=== PATIENT | female | born 1950 | race Caucasian/White ===

== ENCOUNTER 2017-09-30 09:36 | Inpatient (IN) | payer BC, MEDICARE ==
[2017-09-30] MEDS ORDERED: Sodium Chloride 0.9% 1,000 ML IV ONE ×3 (10:20→11:15)
--- NOTE | 2017-09-30 10:22 | EDM.PDOC ---
ED HPI GENERAL MEDICAL PROBLEM - General Chief Complaint: Gastrointestinal Problem Stated Complaint: CHILLS/DIZZY/LIGHTHEADED Time Seen by Provider: 09/30/17 10:08 Source of Information: Reports: Patient History Limitations: Reports: No Limitations - History of Present Illness INITIAL COMMENTS - FREE TEXT/NARRATIVE: 67 y/o F with chief complaint of fatigue/weakness. She states she's had extreme thirst and feels like she's constantly drinking. She's also had frequent urination. She has some nausea and loss of appetite. Has occasional dry heaving but no vomiting. No abdominal pain. No dysuria/hematuria. No chest pain, cough, or shortness of breath. Had a cough six week ago but none since then. No fever. Saw her primary care provider 4 days ago who prescribed Levaquin for bronchitis. She's been taking it but feels no better. No studies were done at that visit. - Related Data Allergies Allergy/AdvReac Type Severity Reaction Status Date / Time No Known Allergies Allergy Verified 09/30/17 10:07 Home Meds: Home Meds Hydrochlorothiazide 25 mg PO DAILY 09/30/17 [History] Levofloxacin 500 mg PO DAILY 09/30/17 [History] Lisinopril 20 mg PO DAILY 09/30/17 [History] Meloxicam [Mobic] 15 mg PO DAILY 09/30/17 [History] Prednisone [IJP: Prednisone] 10 mg PO BID 09/30/17 [History] Propranolol HCl [Inderal LA] 160 mg PO DAILY 09/30/17 [History] ED ROS GENERAL - Review of Systems Review Of Systems: See Below Constitutional: Reports: Malaise, Fatigue. Denies: Fever HEENT: Reports: No Symptoms Respiratory: Denies: Shortness of Breath, Cough Cardiovascular: Denies: Chest Pain Endocrine: Reports: Fatigue, Polydypsia, Polyuria GI/Abdominal: Reports: Nausea. Denies: Abdominal Pain : Reports: Frequency Musculoskeletal: Reports: No Symptoms Skin: Reports: No Symptoms Neurological: Reports: Dizziness Psychiatric: Reports: No Symptoms Hematologic/Lymphatic: Reports: No Symptoms Immunologic: Reports: No Symptoms ED EXAM, GI/ABD - Physical Exam Exam: See Below Exam Limited By: No Limitations General Appearance: Alert, WD/WN, No Apparent Distress Eyes: Bilateral: Normal Appearance Ears: Normal External Exam Nose: Normal Inspection Throat/Mouth: Other (dry mucous membranes) Head: Atraumatic, Normocephalic Neck: Normal Inspection, Supple Respiratory/Chest: No Respiratory Distress, Lungs Clear, Normal Breath Sounds, No Accessory Muscle Use, Chest Non-Tender Cardiovascular: Normal Peripheral Pulses, Regular Rate, Rhythm, No Edema, No Murmur GI/Abdominal Exam: Soft, Non-Tender, No Distention. No: Rebound Back Exam: Normal Inspection. No: CVA Tenderness (L), CVA Tenderness (R) Extremities: Normal Inspection Neurological: Alert, Oriented, CN II-XII Intact, Normal Cognition, No Motor/ Sensory Deficits Psychiatric: Normal Affect, Normal Mood Skin Exam: Warm, Dry, Intact, Normal Color, No Rash Course - Vital Signs Last Recorded V/S: Last Vital Signs Temp 36.2 C 09/30/17 09:55 Pulse 62 09/30/17 09:55 Resp 16 09/30/17 09:55 BP 107/43 L 09/30/17 09:55 Pulse Ox 98 09/30/17 09:55 - Orders/Labs/Meds Orders: Active Orders 24 hr Category Date Time Status Blood Glucose Check, Bedside [RC] ONETIME Care 09/30/17 10:20 Active EKG 12 Lead [EKG Documentation Completion] [RC] STAT Care 09/30/17 10:34 Active Height and Weight [RC] DAILY Care 09/30/17 13:31 Active Intake and Output [RC] QSHIFT Care 09/30/17 13:31 Active Oxygen Therapy [RC] PRN Care 09/30/17 13:31 Active RT Aerosol Therapy [RC] ASDIRECTED Care 09/30/17 13:34 Active Up With Assistance [RC] ASDIRECTED Care 09/30/17 13:31 Active Up ad Annmarie [RC] ASDIRECTED Care 09/30/17 13:31 Active VTE/DVT Education [RC] PER UNIT ROUTINE Care 09/30/17 13:31 Active Vital Signs [RC] Q4H Care 09/30/17 13:31 Active Consult to Case Management [CONS] Routine Cons 09/30/17 13:31 Active Consult to Diabetic Nurse Specialist [CONS] Routine Cons 09/30/17 13:31 Active Consult to Slip Cover Estimator [CONS] Routine Cons 09/30/17 13:31 Active Consult to Teacher Associate [CONS] Routine Cons 09/30/17 13:31 Active Nothing per Oral Now Diet [DIET] Diet 09/30/17 Lunch Active CMP [COMPREHENSIVE METABOLIC PN,CMP] [CHEM] Stat Lab 09/30/17 12:44 Ordered GLUCOSE RANDOM [CHEM] Stat Lab 09/30/17 12:38 Ordered OSMOLALITY,SERUM [CHEM] Stat Lab 09/30/17 12:44 Ordered POTASSIUM,K [CHEM] Stat Lab 09/30/17 12:38 Ordered Acetaminophen [Tylenol] Med 09/30/17 13:31 Active 650 mg PO Q4H PRN Acetaminophen/HYDROcodone [[place] 325-5 MG] Med 09/30/17 13:31 Active 1 tab PO Q4H PRN Albuterol/Ipratropium [DuoNeb 3.0-0.5 MG/3 ML] Med 09/30/17 13:31 Active 3 ml NEB Q4H PRN Bisacodyl [Dulcolax] Med 09/30/17 13:31 Active 5 mg PO DAILY PRN Docusate Sodium [Colace] Med 09/30/17 13:31 Active 100 mg PO BID PRN Docusate Sodium/Sennosides [Senna Plus] Med 09/30/17 13:31 Active 1 tab PO BID PRN HYDROmorphone [Dilaudid] Med 09/30/17 13:31 Active 0.25 mg IVPUSH Q2H PRN Insulin Regular, Human [HumuLIN R] 100 unit Med 09/30/17 11:15 Active Sodium Chloride 0.9% [Normal Saline] 99 ml IV TITRATE LORazepam [Ativan] Med 09/30/17 13:31 Active 1 mg IV Q6H PRN LORazepam [Ativan] Med 09/30/17 13:30 Active 2 mg IVPUSH Q4H PRN Lisinopril [Prinivil] Med 10/01/17 09:00 Active 20 mg PO DAILY Magnesium Rep Pharmacy to Dose [Pharmacy to Dose - Med 09/30/17 13:30 Pending Magnesium Replacement] 1 dose .XX ASDIRECTED Metoprolol Tartrate [Lopressor] Med 09/30/17 13:30 Active 5 mg IVPUSH Q4H PRN Ondansetron [Zofran] Med 09/30/17 13:31 Active 4 mg IV Q6H PRN Polyethylene Glycol 3350 [MiraLAX] Med 09/30/17 13:31 Active 17 gm PO DAILY PRN Potassium Rep Pharmacy to Dose [Pharmacy to Dose - Med 09/30/17 13:30 Pending Potassium Replacement] 1 dose .XX ASDIRECTED Promethazine [Phenergan] 12.5 mg Med 09/30/17 13:31 Active Sodium Chloride 0.9% [Normal Saline] 50 ml IV Q6H Propranolol HCl [Inderal LA] Med 10/01/17 09:00 Active 160 mg PO DAILY Temazepam [Restoril] Med 09/30/17 13:31 Active 15 mg PO BEDTIME PRN hydrALAZINE [Apresoline] Med 09/30/17 13:30 Active 20 mg IVPUSH Q4H PRN Resuscitation Status Routine Resus Stat 09/30/17 13:31 Ordered Medication Orders Acetaminophen (Tylenol) 650 mg PO Q4H PRN PRN Reason: Pain (Mild 1-3)/fever Hydrocodone Bitart/Acetaminophen ([place] 325-5 Mg) 1 tab PO Q4H PRN PRN Reason: Pain (moderate 4-6) Albuterol/Ipratropium (Duoneb 3.0-0.5 Mg/3 Ml) 3 ml NEB Q4H PRN PRN Reason: Shortness Of Breath/wheezing Bisacodyl (Dulcolax) 5 mg PO DAILY PRN PRN Reason: Constipation Docusate Sodium (Colace) 100 mg PO BID PRN PRN Reason: Constipation Hydralazine HCl (Apresoline) 20 mg IVPUSH Q4H PRN PRN Reason: Hypertension Hydromorphone HCl (Dilaudid) 0.25 mg IVPUSH Q2H PRN PRN Reason: Pain (severe 7-10) Insulin Human Regular 100 unit (/ Sodium Chloride) 100 mls @ 10.88 mls/hr IV TITRATE RAUL; 0.1 UNITS/KG/HR PRN Reason: Protocol Last Admin: 09/30/17 11:38 Dose: 0.1 units/kg/hr, 10.88 mls/hr Promethazine HCl 12.5 mg/ (Sodium Chloride) 50.5 mls @ 100 mls/hr IV Q6H PRN PRN Reason: Nausea/Vomiting Lisinopril (Prinivil) 20 mg PO DAILY RAUL Lorazepam (Ativan) 2 mg IVPUSH Q4H PRN PRN Reason: Seizures Lorazepam (Ativan) 1 mg IV Q6H PRN PRN Reason: Anxiety Magnesium Sulfate (Pharmacy To Dose - Magnesium Replacement) 1 dose .XX ASDIRECTED [facility] Metoprolol Tartrate (Lopressor) 5 mg IVPUSH Q4H PRN PRN Reason: Tachycardia Non-Formulary Medication (Propranolol Hcl [Inderal La]) 160 mg PO DAILY [facility] Ondansetron HCl (Zofran) 4 mg IV Q6H PRN PRN Reason: Nausea/Vomiting Polyethylene Glycol (Miralax) 17 gm PO DAILY PRN PRN Reason: Constipation Potassium Chloride (Pharmacy To Dose - Potassium Replacement) 1 dose .XX ASDIRECTED [facility] Senna/Docusate Sodium (Senna Plus) 1 tab PO BID PRN PRN Reason: Constipation Temazepam (Restoril) 15 mg PO BEDTIME PRN PRN Reason: Sleep Labs: Laboratory Tests 09/30/17 09/30/17 09/30/17 Range/Units 10:25 10:25 10:25 WBC 6.99 (3.98-10.04) K/mm3 RBC 5.58 H (3.98-5.22) M/mm3 Hgb 16.5 H (11.2-15.7) gm/L Hct 51.6 H (34.1-44.9) % MCV 92.5 (79.4-94.8) fl MCH 29.6 (25.6-32.2) pg MCHC 32.0 L (32.2-35.5) g/dl RDW Std Deviation 45.3 (36.4-46.3) fL Plt Count 242 (182-369) K/mm3 MPV 10.8 (9.4-12.3) fl Neut % (Auto) 82.5 H (34.0-71.1) % Lymph % (Auto) 12.4 L (19.3-51.7) % [place] % (Auto) 4.6 L (4.7-12.5) % Eos % (Auto) 0 L (0.7-5.8) Baso % (Auto) 0.1 (0.1-1.2) % Neut # (Auto) 5.76 (1.56-6.13) K/mm3 Lymph # (Auto) 0.87 L (1.18-3.74) K/mm3 [place] # (Auto) 0.32 (0.24-0.36) K/mm3 Eos # (Auto) 0.00 L (0.04-0.36) K/mm3 Baso # (Auto) 0.01 (0.01-0.08) K/mm3 Sodium 136 (136-145) mEq/L Potassium 4.9 (3.5-5.1) mEq/L Chloride 92 L (98-107) mEq/L Carbon Dioxide 18 L (21-32) mEq/L Anion Gap 30.9 H (5-15) BUN 40 H (7-18) mg/dL Creatinine 1.7 H (0.55-1.02) mg/dL Est Cr Clr Drug Dosing 24.90 mL/min Estimated GFR (MDRD) 30 (>60) mL/min BUN/Creatinine Ratio 23.5 H (14-18) Glucose 744 H* (80-115) mg/dL Hemoglobin A1c (4.50-6.20) % Calcium 10.4 H (8.5-10.1) mg/dL Magnesium 2.5 H (1.8-2.4) mg/dl Total Bilirubin 0.6 (0.2-1.0) mg/dL AST 10 L (15-37) U/L ALT 18 (14-59) U/L Alkaline Phosphatase 113 (46-116) U/L Total Protein 8.3 H (6.4-8.2) g/dl Albumin 3.7 (3.4-5.0) g/dl Globulin 4.6 gm/dL Albumin/Globulin Ratio 0.8 L (1-2) Lipase 128 (73-393) U/L Free T4 0.85 (0.76-1.46) ng/dL TSH 3rd Generation 0.615 (0.358-3.74) uIU/mL Urine Color (Yellow) Urine Appearance (Clear) Urine pH (5.0-8.0) Ur Specific [place] (1.005-1.030) Urine Protein (Negative) Urine Glucose (UA) (Negative) Urine Ketones (Negative) Urine Occult Blood (Negative) Urine Nitrite (Negative) Urine Bilirubin (Negative) Urine Urobilinogen (0.2-1.0) Ur Leukocyte Esterase (Negative) Urine RBC (0-5) /hpf Urine WBC (0-5) /hpf Ur Epithelial Cells (0-5) /hpf Urine Bacteria (FEW) /hpf Urine Mucus (FEW) /hpf Ketones (0.0-0.3) mM 09/30/17 09/30/17 09/30/17 Range/Units 10:25 10:25 12:15 WBC (3.98-10.04) K/mm3 RBC (3.98-5.22) M/mm3 Hgb (11.2-15.7) gm/L Hct (34.1-44.9) % MCV (79.4-94.8) fl MCH (25.6-32.2) pg MCHC (32.2-35.5) g/dl RDW Std Deviation (36.4-46.3) fL Plt Count (182-369) K/mm3 MPV (9.4-12.3) fl Neut % (Auto) (34.0-71.1) % Lymph % (Auto) (19.3-51.7) % [place] % (Auto) (4.7-12.5) % Eos % (Auto) (0.7-5.8) Baso % (Auto) (0.1-1.2) % Neut # (Auto) (1.56-6.13) K/mm3 Lymph # (Auto) (1.18-3.74) K/mm3 [place] # (Auto) (0.24-0.36) K/mm3 Eos # (Auto) (0.04-0.36) K/mm3 Baso # (Auto) (0.01-0.08) K/mm3 Sodium (136-145) mEq/L Potassium (3.5-5.1) mEq/L Chloride (98-107) mEq/L Carbon Dioxide (21-32) mEq/L Anion Gap (5-15) BUN (7-18) mg/dL Creatinine (0.55-1.02) mg/dL Est Cr Clr Drug Dosing mL/min Estimated GFR (MDRD) (>60) mL/min BUN/Creatinine Ratio (14-18) Glucose (80-115) mg/dL Hemoglobin A1c 10.30 H (4.50-6.20) % Calcium (8.5-10.1) mg/dL Magnesium (1.8-2.4) mg/dl Total Bilirubin (0.2-1.0) mg/dL AST (15-37) U/L ALT (14-59) U/L Alkaline Phosphatase (46-116) U/L Total Protein (6.4-8.2) g/dl Albumin (3.4-5.0) g/dl Globulin gm/dL Albumin/Globulin Ratio (1-2) Lipase (73-393) U/L Free T4 (0.76-1.46) ng/dL TSH 3rd Generation (0.358-3.74) uIU/mL Urine Color Light yellow (Yellow) Urine Appearance Clear (Clear) Urine pH 5.5 (5.0-8.0) Ur Specific [place] 1.015 (1.005-1.030) Urine Protein Trace H (Negative) Urine Glucose (UA) 2+ H (Negative) Urine Ketones 3+ H (Negative) Urine Occult Blood Negative (Negative) Urine Nitrite Negative (Negative) Urine Bilirubin 2+ H (Negative) Urine Urobilinogen 0.2 (0.2-1.0) Ur Leukocyte Esterase Negative (Negative) Urine RBC 0-5 (0-5) /hpf Urine WBC 5-10 H (0-5) /hpf Ur Epithelial Cells 0-5 (0-5) /hpf Urine Bacteria Not seen (FEW) /hpf Urine Mucus Few (FEW) /hpf Ketones 9.9 (0.0-0.3) mM 03/17/18 Range/Units 13:10 WBC (3.98-10.04) K/mm3 RBC (3.98-5.22) M/mm3 Hgb (11.2-15.7) gm/L Hct (34.1-44.9) % MCV (79.4-94.8) fl MCH (25.6-32.2) pg MCHC (32.2-35.5) g/dl RDW Std Deviation (36.4-46.3) fL Plt Count (182-369) K/mm3 MPV (9.4-12.3) fl Neut % (Auto) (34.0-71.1) % Lymph % (Auto) (19.3-51.7) % [place] % (Auto) (4.7-12.5) % Eos % (Auto) (0.7-5.8) Baso % (Auto) (0.1-1.2) % Neut # (Auto) (1.56-6.13) K/mm3 Lymph # (Auto) (1.18-3.74) K/mm3 [place] # (Auto) (0.24-0.36) K/mm3 Eos # (Auto) (0.04-0.36) K/mm3 Baso # (Auto) (0.01-0.08) K/mm3 Sodium (136-145) mEq/L Potassium 4.4 (3.5-5.1) mEq/L Chloride (98-107) mEq/L Carbon Dioxide (21-32) mEq/L Anion Gap (5-15) BUN (7-18) mg/dL Creatinine (0.55-1.02) mg/dL Est Cr Clr Drug Dosing mL/min Estimated GFR (MDRD) (>60) mL/min BUN/Creatinine Ratio (14-18) Glucose 650 H* (80-115) mg/dL Hemoglobin A1c (4.50-6.20) % Calcium (8.5-10.1) mg/dL Magnesium (1.8-2.4) mg/dl Total Bilirubin (0.2-1.0) mg/dL AST (15-37) U/L ALT (14-59) U/L Alkaline Phosphatase (46-116) U/L Total Protein (6.4-8.2) g/dl Albumin (3.4-5.0) g/dl Globulin gm/dL Albumin/Globulin Ratio (1-2) Lipase (73-393) U/L Free T4 (0.76-1.46) ng/dL TSH 3rd Generation (0.358-3.74) uIU/mL Urine Color (Yellow) Urine Appearance (Clear) Urine pH (5.0-8.0) Ur Specific [place] (1.005-1.030) Urine Protein (Negative) Urine Glucose (UA) (Negative) Urine Ketones (Negative) Urine Occult Blood (Negative) Urine Nitrite (Negative) Urine Bilirubin (Negative) Urine Urobilinogen (0.2-1.0) Ur Leukocyte Esterase (Negative) Urine RBC (0-5) /hpf Urine WBC (0-5) /hpf Ur Epithelial Cells (0-5) /hpf Urine Bacteria (FEW) /hpf Urine Mucus (FEW) /hpf Ketones (0.0-0.3) mM Meds: Medications Generic Name Dose Route Start Last Admin Trade Name Freq PRN Reason Stop Dose Admin Acetaminophen 650 mg 09/30/17 13:31 Tylenol PO Q4H PRN Pain (Mild 1-3)/fever Hydrocodone Bitart/Acetaminophen 1 tab 09/30/17 13:31 [place] 325-5 Mg PO Q4H PRN Pain (moderate 4-6) Albuterol/Ipratropium 3 ml 09/30/17 13:31 Duoneb 3.0-0.5 Mg/3 Ml NEB Q4H PRN Shortness Of Breath/wheezing Bisacodyl 5 mg 09/30/17 13:31 Dulcolax PO DAILY PRN Constipation Docusate Sodium 100 mg 09/30/17 13:31 Colace PO BID PRN Constipation Hydralazine HCl 20 mg 09/30/17 13:30 Apresoline IVPUSH Q4H PRN Hypertension Hydromorphone HCl 0.25 mg 09/30/17 13:31 Dilaudid IVPUSH Q2H PRN Pain (severe 7-10) Insulin Human Regular 100 unit 100 mls @ 10.88 mls/hr 09/30/17 11:15 11:38 / Sodium Chloride IV 0.1 units/kg/hr TITRATE RAUL 10.88 mls/hr Protocol Administration 0.1 UNITS/KG/HR Promethazine HCl 12.5 mg/ 50.5 mls @ 100 mls/hr 09/30/17 13:31 Sodium Chloride IV Q6H PRN Nausea/Vomiting Lisinopril 20 mg 10/01/17 09:00 Prinivil PO DAILY RAUL Lorazepam 2 mg 09/30/17 13:30 Ativan IVPUSH Q4H PRN Seizures Lorazepam 1 mg 09/30/17 13:31 Ativan IV Q6H PRN Anxiety Magnesium Sulfate 1 dose 09/30/17 13:30 Pharmacy To Dose - Magnesium Replacement .XX ASDIRECTED RAUL Metoprolol Tartrate 5 mg 09/30/17 13:30 Lopressor IVPUSH Q4H PRN Tachycardia Non-Formulary Medication 160 mg 10/01/17 09:00 Propranolol Hcl [Inderal La] PO DAILY [facility] Ondansetron HCl 4 mg 09/30/17 13:31 Zofran IV Q6H PRN Nausea/Vomiting Polyethylene Glycol 17 gm 09/30/17 13:31 Miralax PO DAILY PRN Constipation Potassium Chloride 1 dose 09/30/17 13:30 Pharmacy To Dose - Potassium Replacement .XX ASDIRECTED [facility] Senna/Docusate Sodium 1 tab 09/30/17 13:31 Senna Plus PO BID PRN Constipation Temazepam 15 mg 09/30/17 13:31 Restoril PO BEDTIME PRN Sleep Discontinued Medications Generic Name Dose Route Start Last Admin Trade Name Freq PRN Reason Stop Dose Admin Sodium Chloride 1,000 mls @ 1,000 mls/hr 09/30/17 10:20 09/30/17 10:37 Normal Saline IV 09/30/17 11:19 1,000 mls/hr ONETIME ONE Administration Sodium Chloride 1,000 mls @ 1,000 mls/hr 09/30/17 10:37 09/30/17 11:40 Normal Saline IV 09/30/17 11:36 1,000 mls/hr ONETIME ONE Administration Sodium Chloride 1,000 mls @ 1,000 mls/hr 09/30/17 11:15 09/30/17 13:20 Normal Saline IV 09/30/17 12:14 1,000 mls/hr ONETIME ONE Administration Pantoprazole Sodium 40 mg 09/30/17 13:31 Protonix Iv IVPUSH 09/30/17 13:32 ONETIME ONE - Re-Assessments/Exams Free Text/Narrative Re-Assessment/Exam: 09/30/17 10:54 POC glucose is greater than 400. This is a new diagnosis of diabetes for this patient. Will discontinue the levaquin as she has no cough for several weeks. Remaining labs pending. 2 L NS ordered. EKG shows NSR, no evidence of acute arrhythmia or ischemia. Normal EKG. 09/30/17 12:29 Labs consistent with DKA. Glucose 740's, anion gap 30, bicarb 18, 3+ ketones in the urine. Initial K+ good at 4.9. She is on an insulin drip and will be admitted to the ICU. Discussed with Dr. Glasgow who agrees to admit her. Will repeat chemistry now. Has been given 3 L of NS. 09/30/17 14:02 Departure - Departure Time of Disposition: 12:28 Disposition: Admitted As Inpatient 68 Clinical Impression: Acute kidney injury DKA (diabetic ketoacidoses) Qualifiers: Diabetes mellitus type: other specified (including SEBLE) Diabetes mellitus complication detail: without coma Qualified Code(s): E13.10 - Other specified diabetes mellitus with ketoacidosis without coma - Discharge Information Critical Care Note - Critical Care Note Total Time (mins): 30 - My Orders Last 24 Hours: My Active Orders 09/30/17 10:20 Blood Glucose Check, Bedside [RC] ONETIME 09/30/17 10:34 EKG 12 Lead [EKG Documentation Completion] [RC] STAT 09/30/17 11:15 Insulin Regular, Human [HumuLIN R] 100 unit Sodium Chloride 0.9% [Normal Saline] 99 ml IV TITRATE 09/30/17 12:38 GLUCOSE RANDOM [CHEM] Stat POTASSIUM,K [CHEM] Stat 09/30/17 12:44 CMP [COMPREHENSIVE METABOLIC PN,CMP] [CHEM] Stat - Assessment/Plan Last 24 Hours: My Active Orders 09/30/17 10:20 Blood Glucose Check, Bedside [RC] ONETIME 09/30/17 10:34 EKG 12 Lead [EKG Documentation Completion] [RC] STAT 09/30/17 11:15 Insulin Regular, Human [HumuLIN R] 100 unit Sodium Chloride 0.9% [Normal Saline] 99 ml IV TITRATE 09/30/17 12:38 GLUCOSE RANDOM [CHEM] Stat POTASSIUM,K [CHEM] Stat 09/30/17 12:44 CMP [COMPREHENSIVE METABOLIC PN,CMP] [CHEM] Stat
[2017-09-30] MEDS ORDERED: LORazepam 2 MG/ML SDV IVPUSH PRN (13:30)
[2017-09-30] MEDS ORDERED: Metoprolol Tartrate 5 MG/5 ML SDV IVPUSH PRN (13:30)
[2017-09-30] MEDS ORDERED: hydrALAZINE 20 MG/ML SDV IVPUSH PRN (13:30)
--- NOTE | 2017-09-30 13:30 | PCM.HP ---
H&P History of Present Illness - General Date of Service: 09/30/17 Admit Problem/Dx: DKA Source of Information: Patient, Family, Provider, RN Notes Reviewed, Significant Other History Limitations: Reports: No Limitations - History of Present Illness Initial Comments - Free Text/Narative: This is a 67 yo white female with past medical hx/o HTN and Morbid Obesity who comes in for evaluation of generalized weakness/fatigue associated with dry heaving, extreme thirst with having to drink in more fluid than usual and frequent urination. She denies any abdominal pain or any other complaints. She reports no previous history of it in the past. She further denies eating ordered drinking unusual food or diet. Patient was recently diagnosed with acute bronchitis and was treated with Levaquin and oral prednisone. She now feels better but she developed subsequent complaints as noted above. Patient carries no history of diabetes or hyperglycemia. Her initial workup in emergency department shows a CBC remarkable for RBC of 5.58, hemoglobin of 16.5, hematocrit of 51.6, neutrophils of 82.5%, lymphocytes of 12.4%, and monocytes of 4.6%. Her Chemistry is remarkable for chloride of 92 , carbon dioxide of 18, anion gap of 30.9, BUN of 40, creatinine of 1.7, glucose of 744, A1c of 10.3, calcium of 10.4, magnesium 2.5, AST of 10, and total protein of 8.3. Her UA is not suggestive of urinary tract infection but noted for 2+ glucose and 3+ ketones. Her serum ketone level is 9.9. Patient is being admitted for new onset of diabetes with ketoacidosis. She is full code. - Related Data Allergies/Adverse Reactions: Allergies Allergy/AdvReac Type Severity Reaction Status Date / Time No Known Allergies Allergy Verified 09/30/17 10:07 Home Medications: Home Meds Hydrochlorothiazide 25 mg PO DAILY 09/30/17 [History] Levofloxacin 500 mg PO DAILY 09/30/17 [History] Lisinopril 20 mg PO DAILY 09/30/17 [History] Meloxicam [Mobic] 15 mg PO DAILY 09/30/17 [History] Prednisone [IJP: Prednisone] 10 mg PO BID 09/30/17 [History] Propranolol HCl [Inderal LA] 160 mg PO DAILY 09/30/17 [History] Past Medical History HEENT History: Reports: Impaired Vision Other HEENT History: wears eyeglasses Cardiovascular History: Reports: Hypertension Gastrointestinal History: Reports: Other (See Below) Other Gastrointestinal History: states had gastric ulcer many yrs ago. Genitourinary History: Reports: UTI, Recurrent [employer] History: Reports: Musculoskeletal History: Reports: Fracture Other Musculoskeletal History: restless legs. - Infectious Disease History Infectious Disease History: Reports: Chicken Pox, Measles, Mumps - Past Surgical History GI Surgical History: Reports: Cholecystectomy Female Surgical History: Reports: Hysterectomy Social & Family History - Tobacco Use Smoking Status *Q: Never Smoker Second Hand Smoke Exposure: No - Caffeine Use Caffeine Use: Reports: None - Recreational Drug Use Recreational Drug Use: No H&P Review of Systems - Review of Systems: Review Of Systems: See Below General: Reports: Malaise, Weakness, Fatigue, Decreased Appetite. Denies: Fever , Chills, Night Sweats, Diaphoresis HEENT: Reports: No Symptoms, Other (thirsty) Pulmonary: Denies: Shortness of Breath Cardiovascular: Denies: Chest Pain, Palpitations, Dyspnea on Exertion, Lightheadedness Gastrointestinal: Reports: Flatus. Denies: Abdominal Pain, Anorexia, Constipation, Diarrhea, Decreased Appetite, Difficulty Swallowing, Vomiting Genitourinary: Reports: Frequency Musculoskeletal: Reports: No Symptoms Skin: Denies: Cyanosis, Mottled, Pallor, Diaphoresis, Rash Psychiatric: Denies: Depression, Anxiety, Agitation, Hallucinations Neurological: Reports: Weakness. Denies: Confusion, Dizziness, Pre-Existing Deficit, Seizure, Syncope, Difficulty Walking, Gait Disturbance Hematologic/Lymphatic: Reports: No Symptoms Immunologic: Reports: No Symptoms Exam - Exam Exam: See Below - Vital Signs Vital Signs: Last Vital Signs Temp 36.2 C 09/30/17 09:55 Pulse 62 09/30/17 09:55 Resp 16 09/30/17 09:55 BP 107/43 L 09/30/17 09:55 Pulse Ox 98 09/30/17 09:55 Weight: 108.862 kg - Exam General: Alert, Oriented, Cooperative, Other (Morbidly Obese). No: Mild Distress HEENT: Conjunctiva Clear, EACs Clear, EOMI, Hearing Intact, Nares Patent, Normal Nasal Septum, Posterior Pharynx Clear, Pupils Equal, Pupils Reactive. No : Mucosa Moist & [place] Neck: Supple, Trachea Midline, +2 Carotid Pulse wo Bruit, Full Range of Motion, Other (short and thick) Lungs: Clear to Auscultation, Normal Respiratory Effort Cardiovascular: Regular Rate, Regular Rhythm GI/Abdominal Exam: Normal Bowel Sounds, Soft, Non-Tender, No Organomegaly, No Distention, No Abnormal Bruit, No Mass, Other (Obese) (Female) Exam: Deferred Rectal (Female) Exam: Deferred Back Exam: Normal Inspection, Decreased Range of Motion Extremities: Normal Inspection, Normal Range of Motion, Non-Tender, No Pedal Edema, Normal Capillary Refill Peripheral Pulses: 3+: Posterior Tibial (L), Posterior Tibial (R), Dorsalis Pedis (L), Dorsalis Pedis (R) Skin: Warm, Dry, Intact Neuro Extensive - Mental Status: Oriented x3, Normal Cognition, Memory Intact Neuro Extensive - Motor, Sensory, Reflexes: CN II-XII Intact, Normal Gait Psychiatric: Alert, Normal Affect, Normal Mood - Patient Data Lab Results Last 24 hrs: Laboratory Results - last 24 hr 09/30/17 09/30/17 09/30/17 Range/Units 10:25 10:25 10:25 WBC 6.99 (3.98-10.04) K/mm3 RBC 5.58 H (3.98-5.22) M/mm3 Hgb 16.5 H (11.2-15.7) gm/L Hct 51.6 H (34.1-44.9) % MCV 92.5 (79.4-94.8) fl MCH 29.6 (25.6-32.2) pg MCHC 32.0 L (32.2-35.5) g/dl RDW Std Deviation 45.3 (36.4-46.3) fL Plt Count 242 (182-369) K/mm3 MPV 10.8 (9.4-12.3) fl Neut % (Auto) 82.5 H (34.0-71.1) % Lymph % (Auto) 12.4 L (19.3-51.7) % [place] % (Auto) 4.6 L (4.7-12.5) % Eos % (Auto) 0 L (0.7-5.8) Baso % (Auto) 0.1 (0.1-1.2) % Neut # (Auto) 5.76 (1.56-6.13) K/mm3 Lymph # (Auto) 0.87 L (1.18-3.74) K/mm3 [place] # (Auto) 0.32 (0.24-0.36) K/mm3 Eos # (Auto) 0.00 L (0.04-0.36) K/mm3 Baso # (Auto) 0.01 (0.01-0.08) K/mm3 Sodium 136 (136-145) mEq/L Potassium 4.9 (3.5-5.1) mEq/L Chloride 92 L (98-107) mEq/L Carbon Dioxide 18 L (21-32) mEq/L Anion Gap 30.9 H (5-15) BUN 40 H (7-18) mg/dL Creatinine 1.7 H (0.55-1.02) mg/dL Est Cr Clr Drug Dosing 24.90 mL/min Estimated GFR (MDRD) 30 (>60) mL/min BUN/Creatinine Ratio 23.5 H (14-18) Glucose 744 H* (80-115) mg/dL Hemoglobin A1c (4.50-6.20) % Calcium 10.4 H (8.5-10.1) mg/dL Magnesium 2.5 H (1.8-2.4) mg/dl Total Bilirubin 0.6 (0.2-1.0) mg/dL AST 10 L (15-37) U/L ALT 18 (14-59) U/L Alkaline Phosphatase 113 (46-116) U/L Total Protein 8.3 H (6.4-8.2) g/dl Albumin 3.7 (3.4-5.0) g/dl Globulin 4.6 gm/dL Albumin/Globulin Ratio 0.8 L (1-2) Lipase 128 (73-393) U/L Free T4 0.85 (0.76-1.46) ng/dL TSH 3rd Generation 0.615 (0.358-3.74) uIU/mL Urine Color (Yellow) Urine Appearance (Clear) Urine pH (5.0-8.0) Ur Specific [place] (1.005-1.030) Urine Protein (Negative) Urine Glucose (UA) (Negative) Urine Ketones (Negative) Urine Occult Blood (Negative) Urine Nitrite (Negative) Urine Bilirubin (Negative) Urine Urobilinogen (0.2-1.0) Ur Leukocyte Esterase (Negative) Urine RBC (0-5) /hpf Urine WBC (0-5) /hpf Ur Epithelial Cells (0-5) /hpf Urine Bacteria (FEW) /hpf Urine Mucus (FEW) /hpf Ketones (0.0-0.3) mM 09/30/17 09/30/17 09/30/17 Range/Units 10:25 10:25 12:15 WBC (3.98-10.04) K/mm3 RBC (3.98-5.22) M/mm3 Hgb (11.2-15.7) gm/L Hct (34.1-44.9) % MCV (79.4-94.8) fl MCH (25.6-32.2) pg MCHC (32.2-35.5) g/dl RDW Std Deviation (36.4-46.3) fL Plt Count (182-369) K/mm3 MPV (9.4-12.3) fl Neut % (Auto) (34.0-71.1) % Lymph % (Auto) (19.3-51.7) % [place] % (Auto) (4.7-12.5) % Eos % (Auto) (0.7-5.8) Baso % (Auto) (0.1-1.2) % Neut # (Auto) (1.56-6.13) K/mm3 Lymph # (Auto) (1.18-3.74) K/mm3 [place] # (Auto) (0.24-0.36) K/mm3 Eos # (Auto) (0.04-0.36) K/mm3 Baso # (Auto) (0.01-0.08) K/mm3 Sodium (136-145) mEq/L Potassium (3.5-5.1) mEq/L Chloride (98-107) mEq/L Carbon Dioxide (21-32) mEq/L Anion Gap (5-15) BUN (7-18) mg/dL Creatinine (0.55-1.02) mg/dL Est Cr Clr Drug Dosing mL/min Estimated GFR (MDRD) (>60) mL/min BUN/Creatinine Ratio (14-18) Glucose (80-115) mg/dL Hemoglobin A1c 10.30 H (4.50-6.20) % Calcium (8.5-10.1) mg/dL Magnesium (1.8-2.4) mg/dl Total Bilirubin (0.2-1.0) mg/dL AST (15-37) U/L ALT (14-59) U/L Alkaline Phosphatase (46-116) U/L Total Protein (6.4-8.2) g/dl Albumin (3.4-5.0) g/dl Globulin gm/dL Albumin/Globulin Ratio (1-2) Lipase (73-393) U/L Free T4 (0.76-1.46) ng/dL TSH 3rd Generation (0.358-3.74) uIU/mL Urine Color Light yellow (Yellow) Urine Appearance Clear (Clear) Urine pH 5.5 (5.0-8.0) Ur Specific [place] 1.015 (1.005-1.030) Urine Protein Trace H (Negative) Urine Glucose (UA) 2+ H (Negative) Urine Ketones 3+ H (Negative) Urine Occult Blood Negative (Negative) Urine Nitrite Negative (Negative) Urine Bilirubin 2+ H (Negative) Urine Urobilinogen 0.2 (0.2-1.0) Ur Leukocyte Esterase Negative (Negative) Urine RBC 0-5 (0-5) /hpf Urine WBC 5-10 H (0-5) /hpf Ur Epithelial Cells 0-5 (0-5) /hpf Urine Bacteria Not seen (FEW) /hpf Urine Mucus Few (FEW) /hpf Ketones 9.9 (0.0-0.3) mM Result Diagrams: 09/30/17 10:25 10/01/17 15:00 *Q Meaningful Use (ADM) - VTE *Q VTE Criteria *Q: - Stroke *Q Stroke Criteria *Q: - AMI *Q AMI Criteria *Q: Problem List Initiated/Reviewed/Updated: Yes Orders Last 24hrs: Active Orders 24 hr Category Date Time Status Blood Glucose Check, Bedside [RC] ONETIME Care 09/30/17 10:20 Active EKG 12 Lead [EKG Documentation Completion] [RC] STAT Care 09/30/17 10:34 Active CMP [COMPREHENSIVE METABOLIC PN,CMP] [CHEM] Stat Lab 09/30/17 12:44 Ordered GLUCOSE RANDOM [CHEM] Stat Lab 09/30/17 10:25 Received OSMOLALITY,SERUM [CHEM] Stat Lab 09/30/17 12:44 Ordered POTASSIUM,K [CHEM] Stat Lab 09/30/17 10:25 Received Insulin Regular, Human [HumuLIN R] 100 unit Med 09/30/17 11:15 Active Sodium Chloride 0.9% [Normal Saline] 99 ml IV TITRATE Lisinopril [Prinivil] Med 10/01/17 09:00 Active 20 mg PO DAILY Propranolol HCl [Inderal LA] Med 10/01/17 09:00 Active 160 mg PO DAILY Medication Orders Insulin Human Regular 100 unit (/ Sodium Chloride) 100 mls @ 10.88 mls/hr IV TITRATE RAUL; 0.1 UNITS/KG/HR PRN Reason: Protocol Last Admin: 09/30/17 11:38 Dose: 0.1 units/kg/hr, 10.88 mls/hr Lisinopril (Prinivil) 20 mg PO DAILY RAUL Non-Formulary Medication (Propranolol Hcl [Inderal La]) 160 mg PO DAILY RAUL Assessment/Plan Comment:: Assessment/Plan: Acute: Diabetic Ketoacidosis - Ketones is 9.9 ( > 5.0 mM is DKA) - BS 744 on presentation; Serum Osmolality 349 - DKA per my protocol - Aggressive IV hydration- already got 1; currently infusing for 2L--> she may need 4-5 L total - NPO until AG resolves DM- New Onset - Most likely Type 2 and not MEIR - She is Obese w/ BMI 45.4 - Continue Insulin regimen - LA and ISS coverage; consider oral regimen since A1C is not 12 or higher - Diabetic Education Recent Bronchitis - Was on Levaquin 500 mg po Daily and Prednisone 10 mg po BID-hold - Continue supportive care Chronic: HTN Obesity with BMI 45.4, Advised LSM Plan: Admit to ICU Insulin drip at 10 units/hr Serial BMP Q4H Routine AM labs 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
[2017-09-30] MEDS ORDERED: LORazepam 2 MG/ML SDV IV PRN (13:31)
[2017-09-30] MEDS ORDERED: Pantoprazole 40 MG Vial IVPUSH ONE (13:31)
[2017-09-30] MEDS ORDERED: Bisacodyl 5 MG Tab PO PRN (13:31)
[2017-09-30] MEDS ORDERED: HYDROmorphone 1 MG/ML Syringe IVPUSH PRN (13:31)
[2017-09-30] MEDS ORDERED: Ondansetron 4 MG/2 ML SDV IV PRN (13:31)
[2017-09-30] MEDS ORDERED: Promethazine 12.5 MG in Sodium Chloride 0.9% 50 ML IV PRN (13:31)
[2017-09-30] MEDS ORDERED: Acetaminophen 325 MG Tab PO PRN (13:31)
[2017-09-30] MEDS ORDERED: Temazepam 15 MG Cap PO PRN (13:31)
[2017-09-30] MEDS ORDERED: Docusate Sodium 100 MG Cap PO PRN (13:31)
[2017-09-30] MEDS ORDERED: Albuterol/Ipratropium 3.0-0.5 MG/3 ML Neb Soln NEB PRN (13:31)
[2017-09-30] MEDS ORDERED: Acetaminophen/HYDROcodone 325-5 MG Tab PO PRN (13:31)
[2017-09-30] MEDS ORDERED: Polyethylene Glycol 3350 Powder 17 GM Packet PO PRN (13:31)
[2017-09-30] MEDS ORDERED: Lactated Ringers 1,000 ML IV ONE (14:30)
[2017-09-30] MEDS ORDERED: Sodium Chloride 0.9% 1,000 ML IV SCH (14:45)
[2017-09-30] MEDS ORDERED: Pneumococcal Polyvalent-23 Vaccine 0.5 ML SDV IM ONE (14:51)
[2017-09-30] MEDS ORDERED: 50% Dextrose in Water 50 ML Syringe IVPUSH PRN (16:27)
[2017-09-30] MEDS ORDERED: Insulin Detemir 100 Units/ML 3 ML Pen SUBCUT ONE (16:31)
[2017-09-30] MEDS ORDERED: Potassium Chloride 20 MEQ Tab.ER PO ONE (20:55)
[2017-09-30] MEDS: Potassium Chloride 10 MEQ in Premix Bag 1 BAG IV SCH ×2 (21:23→22:25)
[2017-09-30] MEDS: Insulin Aspart 100 Units/ML 3 ML Pen SUBCUT SCH ×2 (22:30→22:51)
[2017-09-30] MEDS ORDERED: Dextrose 5% in Water 1,000 ML IV SCH (22:45)
[2017-09-30] MEDS: metFORMIN 500 MG Tab PO SCH (22:51)
[2017-09-30] MEDS: glipiZIDE 2.5 MG Tab.ER PO SCH (22:51)
[2017-09-30] MEDS ORDERED: Scopolamine 1.5 MG Transdermal Patch TRDERM PRN (23:37)
[2017-10-01] MEDS: glipiZIDE 2.5 MG Tab.ER PO SCH ×2 (05:18→17:05)
[2017-10-01] MEDS: metFORMIN 500 MG Tab PO SCH ×2 (06:16→17:05)
[2017-10-01] MEDS: Insulin Aspart 100 Units/ML 3 ML Pen SUBCUT SCH ×4 (06:18→21:37)
[2017-10-01] MEDS ORDERED: Insulin Detemir 100 Units/ML 3 ML Pen SUBCUT ONE (07:00)
[2017-10-01] MEDS ORDERED: PROPRANOLOL HCL 160 MG PO SCH (09:00)
[2017-10-01] MEDS: Lisinopril 20 MG Tab PO SCH (09:35)
[2017-10-01] MEDS: Propranolol 80 MG Cap.ER PO SCH (10:32)
--- NOTE | 2017-10-01 19:08 | PCM.PN ---
- General Info Date of Service: 10/01/17 Admission Dx/Problem (Free Text): DKA Subjective Update: Follow Up Functional Status: Reports: Pain Controlled, Tolerating Diet, Ambulating, Urinating, New Symptoms - Review of Systems General: Denies: Fever, Weakness, Fatigue, Malaise, Chills HEENT: Reports: No Symptoms Pulmonary: Denies: Shortness of Breath Cardiovascular: Denies: Chest Pain, Palpitations, Dyspnea on Exertion, Lightheadedness Gastrointestinal: Reports: Flatus. Denies: Abdominal Pain, Constipation, Decreased Appetite, Diarrhea, Difficulty Swallowing, Nausea, Vomiting Genitourinary: Reports: No Symptoms Musculoskeletal: Reports: No Symptoms Skin: Denies: Cyanosis, Mottled, Pallor, Diaphoresis, Rash Neurological: Denies: Confusion, Dizziness, Difficulty Walking, Weakness, Gait Disturbance Psychiatric: Denies: Depression, Anxiety, Agitation, Hallucinations Systems Review Comment:: No overnight or acute issues. She feels great this morning. Her AG resolved overnight. She has no complaints. - Patient Data Vitals - Most Recent: Last Vital Signs Temp 37.1 C 10/01/17 16:00 Pulse 60 10/01/17 16:00 Resp 16 10/01/17 16:00 BP 110/60 10/01/17 16:00 Pulse Ox 96 10/01/17 16:00 Weight - Most Recent: 109 kg I&O - Last 24 Hours: Intake & Output 10/01/17 10/01/17 10/01/17 06:59 14:59 22:59 Intake Total 1432 600 440 Output Total 500 450 400 Balance 932 150 40 Lab Results Last 24 Hours: Laboratory Results - last 24 hr 09/30/17 09/30/17 09/30/17 Range/Units 18:47 19:25 20:23 Sodium 143 (136-145) mEq/L Potassium 3.3 L (3.5-5.1) mEq/L Chloride 103 (98-107) mEq/L Carbon Dioxide 19 L (21-32) mEq/L Anion Gap 24.3 H (5-15) BUN 31 H (7-18) mg/dL Creatinine 1.2 H (0.55-1.02) mg/dL Est Cr Clr Drug Dosing 35.27 mL/min Estimated GFR (MDRD) 45 (>60) mL/min BUN/Creatinine Ratio 25.8 H (14-18) Glucose 328 H (80-115) mg/dL POC Glucose 300 H 270 H (80-115) mg/dL Calcium 8.5 (8.5-10.1) mg/dL 09/30/17 09/30/17 09/30/17 Range/Units 21:29 22:30 22:31 Sodium 144 (136-145) mEq/L Potassium 3.3 L (3.5-5.1) mEq/L Chloride 106 (98-107) mEq/L Carbon Dioxide 27 (21-32) mEq/L Anion Gap 14.3 (5-15) BUN 28 H (7-18) mg/dL Creatinine 1.4 H (0.55-1.02) mg/dL Est Cr Clr Drug Dosing 30.23 mL/min Estimated GFR (MDRD) 38 (>60) mL/min BUN/Creatinine Ratio 20.0 H (14-18) Glucose 176 H (80-115) mg/dL POC Glucose 271 H 161 H (80-115) mg/dL Calcium 8.8 (8.5-10.1) mg/dL 09/30/17 10/01/17 10/01/17 Range/Units 23:25 00:28 05:15 Sodium (136-145) mEq/L Potassium (3.5-5.1) mEq/L Chloride (98-107) mEq/L Carbon Dioxide (21-32) mEq/L Anion Gap (5-15) BUN (7-18) mg/dL Creatinine (0.55-1.02) mg/dL Est Cr Clr Drug Dosing mL/min Estimated GFR (MDRD) (>60) mL/min BUN/Creatinine Ratio (14-18) Glucose (80-115) mg/dL POC Glucose 182 H 266 H 354 H (80-115) mg/dL Calcium (8.5-10.1) mg/dL 10/01/17 10/01/17 10/01/17 Range/Units 05:30 09:13 10:50 Sodium 138 (136-145) mEq/L Potassium 4.2 (3.5-5.1) mEq/L Chloride 103 (98-107) mEq/L Carbon Dioxide 22 (21-32) mEq/L Anion Gap 17.2 H (5-15) BUN 27 H (7-18) mg/dL Creatinine 1.4 H (0.55-1.02) mg/dL Est Cr Clr Drug Dosing 30.23 mL/min Estimated GFR (MDRD) 38 (>60) mL/min BUN/Creatinine Ratio 19.3 H (14-18) Glucose 393 H (80-115) mg/dL POC Glucose 398 H 397 H (80-115) mg/dL Calcium 8.8 (8.5-10.1) mg/dL 10/01/17 10/01/17 10/01/17 Range/Units 14:01 15:00 17:04 Sodium 134 L (136-145) mEq/L Potassium 3.7 (3.5-5.1) mEq/L Chloride 99 (98-107) mEq/L Carbon Dioxide 24 (21-32) mEq/L Anion Gap 14.7 (5-15) BUN 26 H (7-18) mg/dL Creatinine 1.3 H (0.55-1.02) mg/dL Est Cr Clr Drug Dosing 32.56 mL/min Estimated GFR (MDRD) 41 (>60) mL/min BUN/Creatinine Ratio 20.0 H (14-18) Glucose 346 H (80-115) mg/dL POC Glucose 288 H 332 H (80-115) mg/dL Calcium 9.1 (8.5-10.1) mg/dL Med Orders - Current: Current Medications Acetaminophen (Tylenol) 650 mg PO Q4H PRN PRN Reason: Pain (Mild 1-3)/fever Hydrocodone Bitart/Acetaminophen (Reva 325-5 Mg) 1 tab PO Q4H PRN PRN Reason: Pain (moderate 4-6) Albuterol/Ipratropium (Duoneb 3.0-0.5 Mg/3 Ml) 3 ml NEB Q4H PRN PRN Reason: Shortness Of Breath/wheezing Bisacodyl (Dulcolax) 5 mg PO DAILY PRN PRN Reason: Constipation Dextrose/Water (Dextrose 50% In Water) 50 ml IVPUSH ASDIRECTED PRN PRN Reason: Hypoglycemia Docusate Sodium (Colace) 100 mg PO BID PRN PRN Reason: Constipation Glipizide (Glucotrol Xl) 2.5 mg PO BIDAC [facility] Last Admin: 10/01/17 17:05 Dose: 2.5 mg Hydralazine HCl (Apresoline) 20 mg IVPUSH Q4H PRN PRN Reason: Hypertension Hydromorphone HCl (Dilaudid) 0.25 mg IVPUSH Q2H PRN PRN Reason: Pain (severe 7-10) Insulin Human Regular 100 unit (/ Sodium Chloride) 100 mls @ 10.88 mls/hr IV TITRATE RAUL; 0.1 UNITS/KG/HR PRN Reason: Protocol Last Admin: 09/30/17 21:47 Dose: 10 units/kg/hr, 1,088.62 mls/hr Promethazine HCl 12.5 mg/ (Sodium Chloride) 50.5 mls @ 100 mls/hr IV Q6H PRN PRN Reason: Nausea/Vomiting Sodium Chloride (Normal Saline) 1,000 mls @ 125 mls/hr IV ASDIRECTED [facility] Last Admin: 09/30/17 18:04 Dose: 125 mls/hr Potassium Chloride 10 meq/ (Premix) 100 mls @ 100 mls/hr IV ASDIRECTED [facility] Stop: 10/01/17 21:59 Last Admin: 09/30/17 22:25 Dose: 100 mls/hr Dextrose/Water (Dextrose 5% In Water) 1,000 mls @ 150 mls/hr IV ASDIRECTED [facility] Last Infusion: 09/30/17 23:40 Dose: 0 mls/hr Insulin Aspart (Novolog) 0 unit SUBCUT QIDACANDBED [facility] PRN Reason: Protocol Last Admin: 10/01/17 17:08 Dose: 8 units Lisinopril (Prinivil) 20 mg PO DAILY [facility] Last Admin: 10/01/17 09:35 Dose: 20 mg Lorazepam (Ativan) 2 mg IVPUSH Q4H PRN PRN Reason: Seizures Lorazepam (Ativan) 1 mg IV Q6H PRN PRN Reason: Anxiety Magnesium Sulfate (Pharmacy To Dose - Magnesium Replacement) 1 dose .XX ASDIRECTED [facility] Metformin HCl (Glucophage) 1,000 mg PO BIDMEALS [facility] Last Admin: 10/01/17 17:05 Dose: 1,000 mg Metoprolol Tartrate (Lopressor) 5 mg IVPUSH Q4H PRN PRN Reason: Tachycardia Miscellaneous Information (Remove Patch) 1 ea TRDERM Q72H [facility] Ondansetron HCl (Zofran) 4 mg IV Q6H PRN PRN Reason: Nausea/Vomiting Last Admin: 09/30/17 23:44 Dose: 4 mg Polyethylene Glycol (Miralax) 17 gm PO DAILY PRN PRN Reason: Constipation Potassium Chloride (Pharmacy To Dose - Potassium Replacement) 1 dose .XX ASDIRECTED RAUL Propranolol HCl (Inderal La) 160 mg PO DAILY RAUL Last Admin: 10/01/17 10:32 Dose: 160 mg Scopolamine (Transderm-Scop) 1.5 mg TRDERM Q72H PRN PRN Reason: Nausea Last Admin: 09/30/17 23:45 Dose: 1.5 mg Senna/Docusate Sodium (Senna Plus) 1 tab PO BID PRN PRN Reason: Constipation Temazepam (Restoril) 15 mg PO BEDTIME PRN PRN Reason: Sleep Discontinued Medications Sodium Chloride (Normal Saline) 1,000 mls @ 1,000 mls/hr IV ONETIME ONE Stop: 09/30/17 11:19 Last Admin: 09/30/17 10:37 Dose: 1,000 mls/hr Sodium Chloride (Normal Saline) 1,000 mls @ 1,000 mls/hr IV ONETIME ONE Stop: 09/30/17 11:36 Last Admin: 09/30/17 11:40 Dose: 1,000 mls/hr Sodium Chloride (Normal Saline) 1,000 mls @ 1,000 mls/hr IV ONETIME ONE Stop: 09/30/17 12:14 Last Admin: 09/30/17 13:20 Dose: 1,000 mls/hr Lactated Ringer's (Ringers, Lactated) 1,000 mls @ 999 mls/hr IV .BOLUS ONE Stop: 09/30/17 15:30 Last Admin: 09/30/17 14:47 Dose: 999 mls/hr Insulin Detemir (Levemir) 10 unit SUBCUT ONETIME ONE Stop: 10/01/17 07:01 Last Admin: 10/01/17 06:16 Dose: 10 units Insulin Detemir (Levemir) 10 unit SUBCUT ONETIME ONE Stop: 09/30/17 16:32 Last Admin: 09/30/17 17:45 Dose: 10 units Non-Formulary Medication (Propranolol Hcl [Inderal La]) 160 mg PO DAILY [facility] Pantoprazole Sodium (Protonix Iv) 40 mg IVPUSH ONETIME ONE Stop: 09/30/17 13:32 Last Admin: 09/30/17 15:31 Dose: 40 mg Pneumococcal Polyvalent Vaccine (Pneumovax 23) 0.5 ml IM .ONCE ONE Stop: 09/30/17 14:52 Last Admin: 09/30/17 16:07 Dose: Not Given Potassium Chloride (Klor-Con M20) 40 meq PO ONETIME ONE Stop: 09/30/17 20:56 Last Admin: 09/30/17 21:20 Dose: 40 meq - Exam General: Alert, Oriented, Cooperative, No Acute Distress, Other (Morbid Obesity) HEENT: Pupils Equal, Pupils Reactive, EOMI, Mucous Membr. Moist/[place] Neck: Supple, Trachea Midline, Other (short and thick) Lungs: Clear to Auscultation, Normal Respiratory Effort Cardiovascular: Regular Rate, Regular Rhythm GI/Abdominal Exam: Normal Bowel Sounds, Soft, Non-Tender, No Organomegaly, No Distention, No Abnormal Bruit (Female) Exam: Deferred Back Exam: Normal Inspection, Decreased Range of Motion Extremities: Normal Inspection, Normal Range of Motion, Non-Tender, No Pedal Edema, Normal Capillary Refill Peripheral Pulses: 2+: Dorsalis Pedis (L), Dorsalis Pedis (R) Skin: Warm, Dry, Intact Neurological: No New Focal Deficit Psy/Mental Status: Alert, Normal Affect, Normal Mood - Problem List Review Problem List Initiated/Reviewed/Updated: Yes - My Orders Last 24 Hours: My Active Orders 09/30/17 21:00 Potassium Chloride [KCl 10 MEQ in Water 100 ML] 10 meq Premix Bag 1 bag IV ASDIRECTED 09/30/17 22:45 Dextrose 5% in Water 1,000 ml IV ASDIRECTED 09/30/17 23:37 Scopolamine [Transderm-Scop] 1.5 mg TRDERM Q72H PRN 10/01/17 10:02 Propranolol [Inderal LA] 160 mg PO DAILY 10/01/17 Breakfast ADA Diabetic [[place] [employer] Diet] [DIET] 10/02/17 05:11 LIPID PANEL [CHEM] AM 10/02/17 09:00 Remove Patch 1 ea TRDERM Q72H - Plan Plan:: Assessment/Plan: Acute: DM- New Onset - Most likely Type 2 and not MEIR - She is Obese w/ BMI 45.4 - Continue Insulin regimen - LA and ISS coverage; consider oral regimen since A1C is not 12 or higher - Metformin 1000 mg po BID and glipizide 2.5 mg po BIDAC - Consider SGLT2 Inhibitor (Jardiance) cardiovascular benefit and GLP-1 ( Victoza) for weight loss - Diabetic Education Resolved: S/p Diabetic Ketoacidosis - Ketones is 9.9 ( > 5.0 mM is DKA) - BS 744 on presentation; Serum Osmolality 349 - DKA per my protocol - Aggressive IV hydration- already got 1; currently infusing for 2L--> she may need 4-5 L total - NPO until AG resolves Recent Bronchitis - Was on Levaquin 500 mg po Daily and Prednisone 10 mg po BID-hold - Continue supportive care Chronic: HTN Obesity with BMI 45.4, Advised LSM Plan: Admit to ICU Insulin drip at 10 units/hr Serial BMP Q4H Routine AM labs 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
[2017-10-02] MEDS: glipiZIDE 2.5 MG Tab.ER PO SCH (05:24)
[2017-10-02] MEDS: metFORMIN 500 MG Tab PO SCH (06:49)
[2017-10-02] MEDS: Insulin Aspart 100 Units/ML 3 ML Pen SUBCUT SCH ×2 (06:50→12:08)
[2017-10-02] MEDS: Propranolol 80 MG Cap.ER PO SCH (08:00)
[2017-10-02] MEDS: Lisinopril 20 MG Tab PO SCH (08:02)
--- NOTE | 2017-10-02 11:44 | PCM.DCSUM1 ---
Discharge Summary - Discharge Data Discharge Date: 10/02/17 Discharge Disposition: Home, Self-Care 01 Condition: Good - Discharge Diagnosis/Problem(s) (1) HLD (hyperlipidemia) SNOMED Code(s): 76912321 ICD Code: E78.5 - HYPERLIPIDEMIA, UNSPECIFIED Status: Acute Current Visit : Yes Qualifiers: Hyperlipidemia type: mixed hyperlipidemia Qualified Code(s): E78.2 - Mixed hyperlipidemia (2) DKA (diabetic ketoacidoses) SNOMED Code(s): 883114608 ICD Code: E13.10 - OTH DIABETES MELLITUS WITH KETOACIDOSIS WITHOUT COMA Status: Resolved Current Visit: Yes Qualifiers: Diabetes mellitus type: other specified (including SEBLE) Diabetes mellitus complication detail: without coma Qualified Code(s): E13.10 - Other specified diabetes mellitus with ketoacidosis without coma (3) DM2 (diabetes mellitus, type 2) SNOMED Code(s): 26864345 ICD Code: E11.9 - TYPE 2 DIABETES MELLITUS WITHOUT COMPLICATIONS Status: Acute Current Visit: Yes Qualifiers: Diabetes mellitus complication status: without complication 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 - Resume all home medications. - Continue routine home and work activities as tolerated. - Recommend you check you sugar as directed. Show log on your follow up appointment with your PCP. - Discuss with your PCP if Jardiance and or Victoza are good option for you. - Call your family doctor for any questions or concerns after discharge. - Follow up with PCP in 1-2 week. - Come back or seek immediate care should your symptoms persist or get worse - Discharge Plan Prescriptions/Med Rec: Aspirin 81 mg PO DAILY #30 tab.chew glipiZIDE [Glucotrol XL] 5 mg PO BID #60 tab.er metFORMIN [Glucophage XR] 1,000 mg PO BIDMEALS #60 tab.er Simvastatin [Zocor] 40 mg PO BEDTIME #30 tablet Home Medications: Home Meds Hydrochlorothiazide 25 mg PO DAILY 09/30/17 [History] Lisinopril 20 mg PO DAILY 09/30/17 [History] Meloxicam [Mobic] 15 mg PO DAILY 09/30/17 [History] Propranolol HCl [Inderal LA] 160 mg PO DAILY 09/30/17 [History] Aspirin 81 mg PO DAILY #30 tab.chew 10/02/17 [Rx] Simvastatin [Zocor] 40 mg PO BEDTIME #30 tablet 10/02/17 [Rx] glipiZIDE [Glucotrol XL] 5 mg PO BID #60 tab.er 10/02/17 [Rx] metFORMIN [Glucophage XR] 1,000 mg PO BIDMEALS #60 tab.er 10/02/17 [Rx] Patient Handouts: Preventing Type 2 Diabetes Mellitus, Diabetes and Exercise- SportsMed, Diabetic Ketoacidosis, How to Avoid Diabetes Mellitus Problems, Type 2 Diabetes Mellitus, Diagnosis, Adult, [id number], High Cholesterol Referrals: Ree Forrester NP [Primary Care Provider] - - General Info Date of Service: 10/02/17 Admission Dx/Problem (Free Text: DKA Subjective Update: Follow Up Functional Status: Reports: Pain Controlled, Tolerating Diet, Ambulating, Urinating - Patient Data Vitals - Most Recent: Last Vital Signs Temp 36.3 C 10/02/17 07:58 Pulse 63 10/02/17 04:00 Resp 18 10/02/17 07:58 BP 114/75 10/02/17 08:02 Pulse Ox 98 10/02/17 07:58 Weight - Most Recent: 109.316 kg I&O - Last 24 hours: Intake & Output 10/01/17 10/02/17 10/02/17 22:59 06:59 14:59 Intake Total 440 500 320 Output Total 400 450 Balance 40 500 -130 Lab Results - Last 24 hrs: Laboratory Results - last 24 hr 10/01/17 10/01/17 10/01/17 Range/Units 14:01 15:00 17:04 Sodium 134 L (136-145) mEq/L Potassium 3.7 (3.5-5.1) mEq/L Chloride 99 (98-107) mEq/L Carbon Dioxide 24 (21-32) mEq/L Anion Gap 14.7 (5-15) BUN 26 H (7-18) mg/dL Creatinine 1.3 H (0.55-1.02) mg/dL Est Cr Clr Drug Dosing 32.56 mL/min Estimated GFR (MDRD) 41 (>60) mL/min BUN/Creatinine Ratio 20.0 H (14-18) Glucose 346 H (80-115) mg/dL POC Glucose 288 H 332 H (80-115) mg/dL Calcium 9.1 (8.5-10.1) mg/dL Triglycerides (<150) mg/dL Cholesterol (<200) mg/dL LDL Cholesterol Direct (<100) mg/dL HDL Cholesterol (40-59) mg/dL 10/01/17 10/02/17 10/02/17 Range/Units 21:37 06:44 06:45 Sodium (136-145) mEq/L Potassium (3.5-5.1) mEq/L Chloride (98-107) mEq/L Carbon Dioxide (21-32) mEq/L Anion Gap (5-15) BUN (7-18) mg/dL Creatinine (0.55-1.02) mg/dL Est Cr Clr Drug Dosing mL/min Estimated GFR (MDRD) (>60) mL/min BUN/Creatinine Ratio (14-18) Glucose (80-115) mg/dL POC Glucose 383 H 353 H (80-115) mg/dL Calcium (8.5-10.1) mg/dL Triglycerides 688 H (<150) mg/dL Cholesterol 372 H (<200) mg/dL LDL Cholesterol Direct 225 H* (<100) mg/dL HDL Cholesterol 41.0 (40-59) mg/dL Med Orders - Current: Current Medications Acetaminophen (Tylenol) 650 mg PO Q4H PRN PRN Reason: Pain (Mild 1-3)/fever Hydrocodone Bitart/Acetaminophen ([place] 325-5 Mg) 1 tab PO Q4H PRN PRN Reason: Pain (moderate 4-6) Albuterol/Ipratropium (Duoneb 3.0-0.5 Mg/3 Ml) 3 ml NEB Q4H PRN PRN Reason: Shortness Of Breath/wheezing Bisacodyl (Dulcolax) 5 mg PO DAILY PRN PRN Reason: Constipation Dextrose/Water (Dextrose 50% In Water) 50 ml IVPUSH ASDIRECTED PRN PRN Reason: Hypoglycemia Docusate Sodium (Colace) 100 mg PO BID PRN PRN Reason: Constipation Glipizide (Glucotrol Xl) 2.5 mg PO BIDAC [facility] Last Admin: 10/02/17 05:24 Dose: 2.5 mg Hydralazine HCl (Apresoline) 20 mg IVPUSH Q4H PRN PRN Reason: Hypertension Hydromorphone HCl (Dilaudid) 0.25 mg IVPUSH Q2H PRN PRN Reason: Pain (severe 7-10) Insulin Human Regular 100 unit (/ Sodium Chloride) 100 mls @ 10.88 mls/hr IV TITRATE ARUL; 0.1 UNITS/KG/HR PRN Reason: Protocol Last Admin: 09/30/17 21:47 Dose: 10 units/kg/hr, 1,088.62 mls/hr Promethazine HCl 12.5 mg/ (Sodium Chloride) 50.5 mls @ 100 mls/hr IV Q6H PRN PRN Reason: Nausea/Vomiting Sodium Chloride (Normal Saline) 1,000 mls @ 125 mls/hr IV ASDIRECTED [facility] Last Admin: 09/30/17 18:04 Dose: 125 mls/hr Dextrose/Water (Dextrose 5% In Water) 1,000 mls @ 150 mls/hr IV ASDIRECTED [facility] Last Infusion: 09/30/17 23:40 Dose: 0 mls/hr Insulin Aspart (Novolog) 0 unit SUBCUT QIDACANDBED [facility] PRN Reason: Protocol Last Admin: 10/02/17 06:50 Dose: 10 units Lisinopril (Prinivil) 20 mg PO DAILY [facility] Last Admin: 10/02/17 08:02 Dose: Not Given Lorazepam (Ativan) 2 mg IVPUSH Q4H PRN PRN Reason: Seizures Lorazepam (Ativan) 1 mg IV Q6H PRN PRN Reason: Anxiety Magnesium Sulfate (Pharmacy To Dose - Magnesium Replacement) 1 dose .XX ASDIRECTED [facility] Metformin HCl (Glucophage) 1,000 mg PO BIDMEALS [facility] Last Admin: 10/02/17 06:49 Dose: 1,000 mg Metoprolol Tartrate (Lopressor) 5 mg IVPUSH Q4H PRN PRN Reason: Tachycardia Miscellaneous Information (Remove Patch) 1 ea TRDERM Q72H [facility] Ondansetron HCl (Zofran) 4 mg IV Q6H PRN PRN Reason: Nausea/Vomiting Last Admin: 09/30/17 23:44 Dose: 4 mg Polyethylene Glycol (Miralax) 17 gm PO DAILY PRN PRN Reason: Constipation Potassium Chloride (Pharmacy To Dose - Potassium Replacement) 1 dose .XX ASDIRECTED [facility] Propranolol HCl (Inderal La) 160 mg PO DAILY [facility] Last Admin: 10/02/17 08:00 Dose: 160 mg Scopolamine (Transderm-Scop) 1.5 mg TRDERM Q72H PRN PRN Reason: Nausea Last Admin: 09/30/17 23:45 Dose: 1.5 mg Senna/Docusate Sodium (Senna Plus) 1 tab PO BID PRN PRN Reason: Constipation Temazepam (Restoril) 15 mg PO BEDTIME PRN PRN Reason: Sleep Discontinued Medications Sodium Chloride (Normal Saline) 1,000 mls @ 1,000 mls/hr IV ONETIME ONE Stop: 09/30/17 11:19 Last Admin: 09/30/17 10:37 Dose: 1,000 mls/hr Sodium Chloride (Normal Saline) 1,000 mls @ 1,000 mls/hr IV ONETIME ONE Stop: 09/30/17 11:36 Last Admin: 09/30/17 11:40 Dose: 1,000 mls/hr Sodium Chloride (Normal Saline) 1,000 mls @ 1,000 mls/hr IV ONETIME ONE Stop: 09/30/17 12:14 Last Admin: 09/30/17 13:20 Dose: 1,000 mls/hr Lactated Ringer's (Ringers, Lactated) 1,000 mls @ 999 mls/hr IV .BOLUS ONE Stop: 09/30/17 15:30 Last Admin: 09/30/17 14:47 Dose: 999 mls/hr Potassium Chloride 10 meq/ (Premix) 100 mls @ 100 mls/hr IV ASDIRECTED [facility] Stop: 10/01/17 21:59 Last Admin: 09/30/17 22:25 Dose: 100 mls/hr Insulin Detemir (Levemir) 10 unit SUBCUT ONETIME ONE Stop: 10/01/17 07:01 Last Admin: 10/01/17 06:16 Dose: 10 units Insulin Detemir (Levemir) 10 unit SUBCUT ONETIME ONE Stop: 09/30/17 16:32 Last Admin: 09/30/17 17:45 Dose: 10 units Non-Formulary Medication (Propranolol Hcl [Inderal La]) 160 mg PO DAILY [facility] Pantoprazole Sodium (Protonix Iv) 40 mg IVPUSH ONETIME ONE Stop: 09/30/17 13:32 Last Admin: 09/30/17 15:31 Dose: 40 mg Pneumococcal Polyvalent Vaccine (Pneumovax 23) 0.5 ml IM .ONCE ONE Stop: 09/30/17 14:52 Last Admin: 09/30/17 16:07 Dose: Not Given Potassium Chloride (Klor-Con M20) 40 meq PO ONETIME ONE Stop: 09/30/17 20:56 Last Admin: 09/30/17 21:20 Dose: 40 meq *Q Meaningful Use (DIS) - VTE *Q VTE Criteria *Q: - Stroke *Q Stroke Criteria *Q: - AMI *Q AMI Criteria *Q:
[2017-10-02] MEDS ORDERED: Pneumococcal Polyvalent-23 Vaccine 0.5 ML SDV IM ONE (14:30)
== END 2017-10-02 14:02 | disposition home or self-care (01) | DRG 420 ==
LOC: JD.ED 09:36 → EDBD 09:36 → UNDOADMIN 13:55 → JD.ICU 13:55
PROVIDERS: ADMIT Internal Medicine; ATTEND Internal Medicine
PROC: 3E0234Z Introduction of Serum, Toxoid and Vaccine into Muscle, Percutaneous Approach (ICD-10-PCS; principal; 2017-10-02)
DX: E11.10 Type 2 diabetes mellitus with ketoacidosis without coma (principal); N17.9 Acute kidney failure, unspecified; Z79.899 Other long term (current) drug therapy; H54.7 Unspecified visual loss; I10 Essential (primary) hypertension; G25.81 Restless legs syndrome; E66.9 Obesity, unspecified; Z68.42 Body mass index [BMI] 45.0-49.9, adult; Z23 Encounter for immunization; E78.5 Hyperlipidemia, unspecified
CPT/HCPCS: 36415; 80048; 80053; 80061; 81001; 82009; 82947; 82962; 83036; 83690; 83735; 83930; 84132; 84439; 84443; 85025; 90732; 93005; 96361; 96365; 96366; 99284; 99285-25; A9270-GY; C9113; J1815; J1815-GY; J2405; J3480; J7030; J7040; J7060; J7120

== ENCOUNTER 2022-05-28 14:37 | Emergency (ER) | payer MEDICARE, BC ==
[2022-05-28] MEDS ORDERED: Lactated Ringers 1,000 ML IV ONE (15:02)
[2022-05-28 16:26] LABS: HEMOGLOBIN A1C 7.5 %
[2022-05-28 16:44] LABS: ESTIMATED GFR 79 mL/min (>60)
[2022-05-28] MEDS ORDERED: HYDROmorphone 0.5 MG/0.5 ML Syringe IVPUSH ONE (16:47)
[2022-05-28] MEDS ORDERED: Metoclopramide 10 MG/2 ML SDV IVPUSH ONE (16:48)
== END 2022-05-28 18:00 ==
LOC: JD.ED 14:37
DX: S72.142A Displaced intertrochanteric fracture of left femur, initial encounter for closed fracture (principal); S29.012A Strain of muscle and tendon of back wall of thorax, initial encounter; I10 Essential (primary) hypertension; E11.9 Type 2 diabetes mellitus without complications; E66.9 Obesity, unspecified; Z68.43 Body mass index [BMI] 50.0-59.9, adult; Z79.899 Other long term (current) drug therapy; Z79.82 Long term (current) use of aspirin; Z90.49 Acquired absence of other specified parts of digestive tract; Z90.710 Acquired absence of both cervix and uterus; W01.10XA Fall on same level from slipping, tripping and stumbling with subsequent striking against unspecified object, initial encounter
CPT/HCPCS: 36415; 51702; 71045; 72128; 72170; 73552; 80053; 83036; 83880; 84145; 85025; 85610; 85730; 86140; 86850; 86900; 86901; 93005; 96361; 96374; 96375; 99285; J1170; J2765; J7120

== ENCOUNTER 2023-05-22 20:22 | Emergency (ER) | payer MEDICARE, BC ==
[2023-05-22] MEDS ORDERED: Morphine 4 MG/ML Syringe IVPUSH ONE (21:00)
[2023-05-22] MEDS ORDERED: Naloxone 0.4 MG/ML SDV IVPUSH PRN (21:00)
[2023-05-22] MEDS ORDERED: Ondansetron 4 MG/2 ML SDV IVPUSH ONE (21:02)
[2023-05-22 21:08] LABS: BASOPHILS ABSOLUTE AUTO 0.1 K/mm3 (0.0-0.2); BASOPHILS PERCENT AUTO 0.7 % (0.0-1.0); EOSINOPHILS ABSOLUTE AUTO 0.3 K/mm3 (0.0-0.4); EOSINOPHILS PERCENT AUTO 2.7 % (0.0-6.0); HEMATOCRIT 42.6 % (37.0-47.0); HEMOGLOBIN 14.1 gm/dl (12.0-16.0); IMMATURE GRAN ABSOLUTE AUTO 0.04 K/mm3 (0.00-0.05); IMMATURE GRAN PERCENT AUTO 0.4 % (0.0-0.4); LYMPHOCYTES ABSOLUTE AUTO 1.5 K/mm3 (1.0-4.8); LYMPHOCYTES PERCENT AUTO 13.6 % (24.0-44.0); MEAN CORPUSCULAR HEMOGLOBIN 28.5 pg (28.0-32.0); MEAN CORPUSCULAR HGB CONC 33.1 g/dl (32.0-36.0); MEAN CORPUSCULAR VOLUME 86.1 fl (83.0-99.0); MEAN PLATELET VOLUME 8.7 fl (9.4-12.3); MONOCYTES ABSOLUTE AUTO 0.5 K/mm3 (0.0-0.8); MONOCYTES PERCENT AUTO 4.2 % (0.0-8.0); NEUTROPHILS ABSOLUTE AUTO 8.4 K/mm3 (1.8-7.7); NEUTROPHILS PERCENT AUTO 78.4 % (41.0-71.0); PLATELET COUNT,PLT 186 K/mm3 (150-400); RED BLOOD CELL COUNT 4.95 M/mm3 (4.10-5.30); WHITE BLOOD CELL COUNT,WBC 10.75 K/mm3 (3.9-11.3)
[2023-05-22 21:18] LABS: A/G RATIO 0.9 (1-2); ALBUMIN 3.6 g/dl (3.4-5.0); ANION GAP 14.4 (5-15); BILIRUBIN TOTAL 0.3 mg/dL (0.2-1.0); BUN/CREATININE RATIO 23.3 (14-18); CALCIUM 9.6 mg/dL (8.5-10.1); CREATININE 1.2 mg/dL (0.55-1.02); EST CRCL DRUG DOSING (CG) 32.45 mL/min; POTASSIUM,K 4.4 mEq/L (3.5-5.1); PROTEIN TOTAL,TP 7.5 g/dl (6.4-8.2)
[2023-05-22 21:59] LABS: APPEARANCE,URINE CLEAR (Clear); BILIRUBIN,URINE NEGATIVE (Negative); COLOR,URINE YELLOW (Yellow); GLUCOSE,URINE 2+ (Negative); KETONES,URINE TRACE (Negative); LEUKOCYTE ESTERASE,URINE 1+ (Negative); NITRITE,URINE NEGATIVE (Negative); OCCULT BLOOD,URINE 3+ (Negative); PH,URINE 5.5 (5.0-8.0); PROTEIN,URINE NEGATIVE (Negative); UROBILINOGEN,URINE 0.2 (0.2-1.0)
[2023-05-22] MEDS ORDERED: Ondansetron 4 MG in Sodium Chloride 0.9% 50 ML IV ONE (22:13)
[2023-05-22] MEDS ORDERED: Ketorolac 30 MG/ML SDV IVPUSH ONE (22:13)
[2023-05-22 22:15] LABS: RBC,URINE 50-75 /hpf (0-5)
[2023-05-22 22:16] LABS: BACTERIA,URINE MODERATE /hpf (FEW); MUCUS,URINE FEW /hpf (FEW); WBC,URINE 20-30 /hpf (0-5)
[2023-05-22] MEDS ORDERED: Tamsulosin 0.4 MG Cap.ER PO ONE (22:23)
[2023-05-22] MEDS ORDERED: cefTRIAXone 1 GM in Sodium Chloride 0.9% 100 ML IV ONE (22:33)
== END 2023-05-22 23:34 | disposition home or self-care (01) ==
LOC: JD.ED 20:22
DX: N13.2 Hydronephrosis with renal and ureteral calculous obstruction (principal); N39.0 Urinary tract infection, site not specified; R93.89 Abnormal findings on diagnostic imaging of other specified body structures; I10 Essential (primary) hypertension; E66.9 Obesity, unspecified; Z68.30 Body mass index [BMI] 30.0-30.9, adult; Z79.82 Long term (current) use of aspirin; Z79.84 Long term (current) use of oral hypoglycemic drugs; Z79.899 Other long term (current) drug therapy
CPT/HCPCS: 36415; 74176; 80053; 81001; 83605; 85025; 96365; 96367; 96375; 96376; 99284; A9270; J0696; J1885; J2270; J2405; J3490